=== PATIENT | female | born 1955 ===

== ENCOUNTER 2017-05-30 12:42 | Emergency (ER) | payer MEDICAID ==
[2017-05-30 13:33] VITALS: BP 138/82; PULSE 94; RESP 16; TEMP 97.9; O2SAT 97
[2017-05-30] MEDS ORDERED: Bacitracin 500 Units/gm Oint Foilpak UD TOP ONE (13:43)
[2017-05-30] MEDS ORDERED: Lidocaine 1% Inj (20ml) INFIL STA (13:43)
[2017-05-30] MEDS ORDERED: Lidocaine Hydrochloride 5 ML INJ ONE (14:01)
--- NOTE | 2017-05-30 14:15 | C.PDOC ---
History Of Present Illness 62 year old female presents to the ER after she was opening a can and suffered a laceration to her right hand between the thumb and the index finger. Patient reports she was able to control the bleeding at home. Patient is up to date with tetanus. Denies weakness or numbness. Time Seen by Provider: 05/30/17 13:42 Chief Complaint (Nursing): Abnormal Skin Integrity History Per: Patient History/Exam Limitations: no limitations Onset/Duration Of Symptoms: Hrs Current Symptoms Are (Timing): Still Present Location Of Injury: Right: Hand Quality Of Symptoms: Other (Laceration) Recent travel outside of the [place]: No Past Medical History Reviewed: Historical Data, Nursing Documentation, Vital Signs Vital Signs: Last Vital Signs Temp 97.9 F 05/30/17 13:32 Pulse 94 H 05/30/17 13:32 Resp 16 05/30/17 13:32 BP 138/82 05/30/17 13:32 Pulse Ox 97 05/30/17 15:04 - Medical History PMH: Hypercholesterolemia Surgical History: Appendectomy Family History: States: Unknown Family Hx - Social History Hx Alcohol Use: No Hx Substance Use: No - Immunization History Hx Tetanus Toxoid Vaccination: Yes Hx Influenza Vaccination: No Hx Pneumococcal Vaccination: No Review Of Systems Musculoskeletal: Positive for: Hand Pain Skin: Positive for: Other (Laceration) Neurological: Negative for: Weakness, Numbness Physical Exam - Physical Exam Appears: Non-toxic, No Acute Distress Skin: Warm, Dry Head: Atraumatic, Normacephalic Eye(s): bilateral: Normal Inspection Extremity: Normal ROM (4x), Capillary Refill (<2 seconds), Other (1cm linear laceration to webbed space between the thumb and index finger. No active bleeding.) Pulses: Left Radial: Normal, Right Radial: Normal Neurological/Psych: Oriented x3, Normal Speech, Normal Motor, Normal Sensation ED Course And Treatment O2 Sat by Pulse Oximetry: 97 (Room air) Pulse Ox Interpretation: Normal Laceration - Laceration Repair Right hand Wound Length (In cm): 1 Description Of Wound: Linear Wound Cleansed With: Sterile Saline Anesthesia: Lidocaine 1% Wound Examination: Irrigated With Saline, No FB With Wound Exploration, No Tendon Injury With Wound Exploration Wound Closure: Suture Suture Technique And Material Used: Interrupted (x3), Prolene (5-0) Medical Decision Making Medical Decision Making: laceration repair by PA. Patient tolerated well. Patient insturcted on wound care and to return for suture reomval in 10 days Disposition Counseled Patient/Family Regarding: Diagnosis, Need For Followup - Disposition Referrals: Sonya Rodarte MDE [Medical Tread Cutter] - Disposition: HOME/ ROUTINE Disposition Time: 14:14 Condition: GOOD Additional Instructions: Retire la vestimenta despus de 24 horas. Mantenga el uyen limpia y seca. Puede lavarse suavemente con agua y jabn, no use alcohol o solucin de yodo. Cambie el aderezo 1-2 veces al da. Vuelva a la duyen de emergencias si presenta fiebre , enrojecimiento o hinchazn alrededor de la herida, pus en la herida. Realice un seguimiento con forbes mdico primario, clnica o atencin urgente para la extraccin de suturas en 10 bhandari Remove dresssing after 24 hours. Keep area clean and dry. May wash gently with soap and water, do not use alcohol or iodine solution. Change dressing 1-2 times daily. Return to ER if fever occurs, redness or swelling around wound, pus in the wound. 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 - Scribe Statement The provider has reviewed the documentation as recorded by the Scribe Colin Avery All medical record entries made by the Scribe were at my direction and personally dictated by me. I have reviewed the chart and agree that the record accurately reflects my personal performance of the history, physical exam, medical decision making, and the department course for this patient. I have also personally directed, reviewed, and agree with the discharge instructions and disposition.
[2017-05-30] MEDS ORDERED: Bacitracin 500 Units/gm Oint Foilpak UD ONE (14:19)
== END 2017-05-30 14:23 | disposition home or self-care (01) ==
LOC: C.ER 12:42
DX: S61.411A Laceration without foreign body of right hand, initial encounter (principal); W45.8XXA Other foreign body or object entering through skin, initial encounter

== ENCOUNTER 2017-06-11 16:01 | Emergency (ER) | payer MEDICAID ==
[2017-06-11 16:06] VITALS: BP 123/77; PULSE 71; RESP 20; TEMP 97.9; O2SAT 98
--- NOTE | 2017-06-11 16:20 | C.PDOC ---
History Of Present Illness Patient is a 62 y/o F presenting for suture removal. She had 3 sutures placed on 05/30. She reports that she removed 1 suture 2 days ago. Denies fever or discharge from the wound. Time Seen by Provider: 06/11/17 16:09 Chief Complaint (Nursing): Wound Check Past Medical History Vital Signs: Last Vital Signs Temp 97.9 F 06/11/17 16:04 Pulse 71 06/11/17 16:04 Resp 20 06/11/17 16:04 BP 123/77 06/11/17 16:04 Pulse Ox 98 06/11/17 16:04 - Medical History PMH: Hypercholesterolemia Surgical History: Appendectomy Family History: States: Unknown Family Hx - Social History Hx Alcohol Use: No Hx Substance Use: No - Immunization History Hx Tetanus Toxoid Vaccination: Yes Hx Influenza Vaccination: No Hx Pneumococcal Vaccination: No Review Of Systems Constitutional: Negative for: Fever, Chills Cardiovascular: Negative for: Chest Pain, Palpitations Respiratory: Negative for: Cough, Shortness of Breath, SOB with Excertion Gastrointestinal: Negative for: Nausea Genitourinary: Negative for: Dysuria Skin: Positive for: Other (sutures to R hand) Neurological: Negative for: Weakness, Numbness Physical Exam - Physical Exam Appears: Well, Non-toxic, No Acute Distress Head: Atraumatic, Normacephalic Eye(s): bilateral: Normal Inspection, PERRL, EOMI Extremity: Normal ROM, Other (2 sutures in interweb btw 1st and 2nd digits. No redness. distal pulses intact. Normal ROM) Neurological/Psych: Oriented x3 Gait: Steady ED Course And Treatment O2 Sat by Pulse Oximetry: 98 Medical Decision Making Medical Decision Makin sutures were removed from interspace of 1st and 2nd digits on the R hand. Wound is clean and remained intact with no surrounding eythema. Disposition - Disposition Disposition: HOME/ ROUTINE Disposition Time: 16:19 Condition: GOOD Additional Instructions: Follow-up with PMD. Return to ED if condition worsens. - Clinical Impression Clinical Impression: Visit for suture removal
== END 2017-06-11 16:31 | disposition home or self-care (01) ==
LOC: C.ER 16:01
DX: Z48.02 Encounter for removal of sutures (principal)

== ENCOUNTER 2018-05-08 07:40 | Outpatient (CLI) | payer MEDICAID | END 2018-05-08 07:41 | disposition home or self-care (01) | LOC: C.MAMMO 07:40 | DX: Z12.31 Encounter for screening mammogram for malignant neoplasm of breast (principal) ==